=== PATIENT | male | born 1970 | race Caucasian/White ===

== ENCOUNTER → 2017-02-14 | Outpatient (CLI) | payer BC ==
[~2017-02-14] MED LIST: CYCL10TA2 PO; GADOBUTROL 7.5 MMOL/7.5 ML VIAL IV ONE; LISI10TA2 PO; METF500T4 PO; PRAV20TA2 PO; RABE20TA18 PO; ZOLP12.52 PO
--- NOTE | 2017-02-14 13:22 | KCIC ---
EXAMINATION: Magnetic resonance imaging (MRI) of the lumbar spine without and with contrast HISTORY: Low back pain with right hip pain for one month. Prior surgery. TECHNIQUE: Multiplanar multi-weighted MRI of the lumbar spine was performed without and with intravenous contrast using the standard lumbar spine protocol. Contrast information: 12 mL Gadolinium based contrast COMPARISON: Report for MRI lumbar spine September 16, 2011 FINDINGS: There is minimal retrolisthesis of L4 on L5. Vertebral bodies demonstrate normal signal intensity on all sequences. There are no compression fractures. The conus medullaris terminates at the level of T12-L1. The distal spinal cord signal intensity is normal. There is disc desiccation at L4-L5 and L5-S1. There is disc height loss at L5-S1. Limited views of the abdomen and pelvis show no soft tissue abnormality. The aorta is normal. L2-L3: The disc is normal in configuration. There is no facet arthropathy. There is no neuroforaminal stenosis. There is no spinal canal stenosis. L3-L4: The disc is normal in configuration. There is no facet arthropathy. There is no neuroforaminal stenosis. There is no spinal canal stenosis. L4-L5: There is mild circumferential disc bulge with superimposed right central disc extrusion. Extrusion extends into the right foraminal zone. There is severe right lateral recess stenosis. There is mild to moderate facet arthropathy. There is mild neuroforaminal stenosis. There is mild spinal canal stenosis. L5-S1: Left hemilaminectomy changes are identified at this level. There is a left central disc extrusion narrowing the left lateral recess. There is moderate facet arthropathy. There is moderate, left greater than right, neuroforaminal stenosis. There is no spinal canal stenosis. Apparent left central disc extrusion likely represents granulation tissue given enhancement rather than recurrent herniation. IMPRESSION: 1. New right central disc extrusion at L4-L5 extending to the right foraminal zone. This results in severe right lateral recess stenosis, likely affecting the traversing right L5 nerve. 2. Postoperative changes are identified from left hemilaminectomy at L5-S1 with microdiscectomy changes. Apparent left central disc extrusion likely represents granulation tissue rather than recurrent herniation. Electronically signed by: Elaine Deluna MD (02/14/2017 1:19 PM) [id number]
== END | disposition home or self-care (01) ==
LOC: KCIC MRI 12:09
PROVIDERS: ATTEND Nurse Practitioner Family
DX: M48.061 Spinal stenosis, lumbar region without neurogenic claudication (principal); M51.26 Other intervertebral disc displacement, lumbar region; Z98.890 Other specified postprocedural states
CPT/HCPCS: 72158; 82565; A9585

== ENCOUNTER → 2021-03-09 | Outpatient (CLI) | payer BC ==
[~2021-03-09] MED LIST changes: +CYCL10TA19 PO; -CYCL10TA2 PO; -GADOBUTROL 7.5 MMOL/7.5 ML VIAL IV ONE; +LISI10TA16 PO; -LISI10TA2 PO; +METF500T16 PO; -METF500T4 PO
--- NOTE | 2021-03-10 10:03 | KCIC ---
Exam Date: 03/09/2021 10:23 AM XR KNEE 3 [id number] Indication: Reason: Right knee pain 3 weeks. / Spl. Instructions: Pain started after knee popped walk ing down stairs. / History: . FINDINGS/ IMPRESSION: Small osteophytes are noted. No acute fracture or dislocation. Alignment and joint spaces are maintained. The soft tissues are w ithin normal limits. Electronically signed by: Vidal Borges MD (03/10/2021 10:00 AM) [id number]
== END ==
LOC: KCIC 10:20
PROVIDERS: ATTEND Nurse Practitioner Family
DX: M25.761 Osteophyte, right knee (principal); M25.569 Pain in unspecified knee
CPT/HCPCS: 73562

== ENCOUNTER → 2021-03-15 | Outpatient (CLI) | payer BC ==
--- NOTE | 2021-03-15 12:38 | KCIC ---
EXAM: Left knee, 3 views. HISTORY: Pain. COMPARISON: None. FINDINGS: 3 views of the left knee are obtained. No fracture, dislocation or subluxation. There is no joint effusion. IMPRESSION: No acute osseous finding. Electronically signed by: Anne Marie Ghosh MD (03/15/2021 12:36 PM) [id number]
== END ==
LOC: KCIC 12:18
PROVIDERS: ATTEND Nurse Practitioner Family
DX: M25.562 Pain in left knee (principal)
CPT/HCPCS: 73562